=== PATIENT | female | born 1950 | race Caucasian/White ===

== ENCOUNTER 2016-07-17 18:16 | Emergency (ER) | payer OTHER ==
[~2016-07-17] VITALS: Ht 157.5 cm; Wt 47.7 kg
[~2016-07-17 18:16] MED LIST: ALBU8.5H2 INHALATION; ATRINH INH; B-COMPLEX PO; C COMPLEX PO; CALC500T61 PO; DOXY100C2 PO; ESTR1PAT39 TD; FLUT16SP2 NS; IMITREX; LORA0.5T PO; MAGN250T29 PO; MULT-36 PO; OMEG1CAP25 PO; VITA400C64 PO; VITAMIN D PO
[2016-07-17 18:19] VITALS: BP 184/111; PULSE 89; RESP 18; O2SAT 98
--- NOTE | 2016-07-17 18:42 | ED.REPORT ---
HPI-Chest Pain 40 and Over Date of Service Jul 17, 2016 ED Provider: Dr. Lovett Pt is a 66 y/o female w/ a hx of PACs, anxiety, presenting to the ED c/o irregular palpitations onset 1700 today. She describes her palpitations as her heart skipping a beat which causes her very mild shortness of breath. She has experienced similar palpitations previously which were diagnosed as PACs but not to this frequency. She has been evaluated for this previously and was told her palpitations were benign. Usually when prolonged episodes occur, they are preceded by triggers related to stress. She has not had an echo before. She denies CP, SOB, lightheadedness, syncope, fever, chills. She denies caffeine use. Nursing Notes Stated Complaint: HEART SKIPPING Chief Complaint: Dysrhythmia/Cardiac Nursing Notes Reviewed: Yes Allergies: Coded Allergies: erythromycin ethylsuccinate (Verified Allergy, Severe, RASH, 07/17/16) metoclopramide (Verified Allergy, Severe, INCR HR, 07/17/16) morphine (Verified Allergy, Severe, 04/13/09) fluoxetine (Verified Allergy, Intermediate, increased HR, 07/17/16) nortriptyline (Verified Allergy, Unknown, 07/17/16) insomnia, rapid HR Scheduled ([B-Complex]) 1 TAB PO DAILY ([C-Complex]) 1 TAB PO DAILY ([Vitamin D]) 1,500 IU PO DAILY ([Imitrex]) PRN Albuterol HFA (Proair HFA) 8.5 Gm Hfa.aer.ad 2 PUFFS INHALATION Q4H Calcium Carbonate (Calcium) 500 Mg Tablet 1,500 MG PO DAILY Doxycycline Hyclate (Doxycycline Hyclate) 100 Mg Capsule 100 MG PO BID Estradiol/Levonorgestrel (Climara Pro Patch) 1 Each Patch.tdwk 1 EACH TD WEEKLY Fluticasone Propionate (Flonase Nasal) 16 Gm Mackey.susp 1 SPRAY NS PRN Ipratropium Lewis (Atrovent HFA) 200 Puff/12.9 Gm Inhaler 2 PUFF INH PRN Magnesium Oxide (Magnesium) 250 Mg Tablet 250 MG PO DAILY Multivitamin (Daily Multiple Vitamin) 1 Each Tablet 1 EACH PO TID [place]-3 Fatty Acids/Fish Oil ([place] 3 Fish Oil Softgel) 1 Each Capsule.dr 1 EACH PO DAILY Vitamin E Mixed (Vitamin E) 400 Unit Capsule 400 UNIT PO DAILY Scheduled PRN Lorazepam (Lorazepam) 0.5 Mg Tablet 0.5 MG PO PRN PRN PRN For Insomnia General Time Seen by MD: 18:41 Chief Complaint Other (Palpitations) Hx Obtained From: Patient Arrived By: Walk-in Sudden in Onset?: No Onset Occurred: 1 - 4 hours ago Symptom Duration: Since onset Severity: Current: No pain currently Severity: Maximum: No pain Recent Healthcare: Previous diagnosis Similar Sx Previous: Yes Past Medical History Past Medical History Asthma PACs Anxiety 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 Physical Exam Initial Vital Signs Vital Signs (First) Date Time Temp Pulse Resp B/P Pulse Ox O2 Delivery O2 Flow Rate FiO2 07/17/16 18:19 36.2 89 18 184/111 98 Room Air Initial VS: Reviewed, Vital signs abnormal Head / Eyes: Atraumatic, Normocephalic, PERRL ENT: Mucous membranes moist, Conjunctiva normal, No scleral icterus Neck: Supple, Full range of motion Extremities: Vascular intact, Neuro intact, No swelling, No tenderness Skin: Warm, Dry, No cyanosis Neurologic: Alert, Oriented, Nonfocal Psychiatric: Mood/affect normal, Behavior normal, Normal thought content General/Constitutional: Awake, Alert, No acute distress, Cooperative, Not toxic appearing Respiratory / Chest: Atraumatic, Breath sounds NL, Breath sounds = bilat, No respiratory distress, No rales, No rhonchi, No wheezing, No retractions, No stridor, No chest tenderness, No chest wall deformity, No crepitus Cardiovascular: Heart rate NL, Regular rhythm, Heart sounds NL, No gallop, No murmurs, No rubs, Cap refill not delayed, Peripheral circulation NL Interpretation & Diagnostics Lab Results Interpretation Result Diagram: 07/17/16 1850 07/17/16 185 Test 07/17/16 18:50 07/17/16 19:10 White Blood Count 6.4th/mm3 (3.8-10.1) Red Blood Count 4.97mil/mm3 (3.90-5.20) Hemoglobin 15.3g/dL (12.0-15.6) Hematocrit 45.3% (35.0-46.0) Mean Corpuscular Volume 91.1fL (81-100) Mean Corpuscular Hemoglobin 30.8pg (27.0-35.0) Mean Corpuscular Hemoglobin Concent 33.8% (32.0-37.0) Red Cell Distribution Width 13.1% (12.3-15.4) Platelet Count 267bil/L (150-400) Neutrophils (%) (Auto) 49.6% (40-74) Lymphocytes (%) (Auto) 37.2% (14-46) Monocytes (%) (Auto) 11.6% (4-12) Eosinophils (%) (Auto) 0.9% (0-5) Basophils (%) (Auto) 0.5% (0-3) Hold Purple Top Tube Received (Received) Hold Blue Top Tube Received (Received) Sodium Level 137mEq/L (134-144) Potassium Level 4.2mEq/L (3.5-5.2) Chloride Level 96mEq/L (97-108) Carbon Dioxide Level 25mmol/L (18-29) Blood Urea Nitrogen 17mg/dL (8-27) Creatinine 0.78mg/dL (0.57-1.00) Estimat Glomerular Filtration Rate 106mL/min (>59) Glucose Level 94mg/dL (60-99) Calcium Level 10.4mg/dL (8.5-10.1) Total Bilirubin 0.5mg/dL (0.0-1.2) Aspartate Amino Transf (AST/SGOT) 26U/L (0-50) Alanine Aminotransferase (ALT/SGPT) 21U/L (0-32) Alkaline Phosphatase 53U/L (25-165) Troponin T < 0.010ug/L (0.0-0.011) Total Protein 7.8g/dL (6.4-8.4) Albumin 4.2g/dL (3.4-5.0) Hold [place] Top Tube Received (Received) Hold Cr Top Tube Received (Received) Hold Urine Received (Received) ECG Interpretation ECG Interpretation: Sinus rhythm rate 93 APC LAE Time: 18:56 Interpreted by: ED physician Normal ECG Interpretation: No acute ischemic changes Re-Eval/Medical Decision Time of Eval: 20:07 Patient Status: Condition improved Re-Evaluation/Progress Note: Pt rechecked. Informed pt of plan for treatment. Pt understands and agrees with plan for treatment. F/U instructions and RTER warnings given. All questions addressed. Counseled Regarding: Diagnosis, Lab results, Need for follow-up, When/why to return to ED Discharge & Departure Primary Impression: Premature atrial contraction Disposition: Home Discharge Condition All VS Reviewed: Yes Condition: Stable Patient Instructions: Palpitations (ED) Additional Instructions: Your labs today were normal. There is no sign of heart attack. Your EKG showed premature atrial contractions (PACs), which is a benign condition that is quite common although most people are not able to perceive these early beats. If these palpitations continue to cause you discomfort or other complications, medical management may be considered. This should be discussed with your doctor. Try to refrain from caffeine for the next few days to see if this causes a decrease in your palpitations. Return to the emergency department if you experience chest pain, severe shortness of breath, lightheadedness, vomiting, or other concerning symptoms. Follow-up with your doctor as regularly scheduled. Referrals: Reinier Aguilar MD (PCP) Scribe Attestation Portions of this note were transcribed by Lawrence Lincoln. I, Dr. Lovett personally performed the history, physical exam and medical decision-making; I reviewed and confirmed the accuracy of the information in the transcribed note. Signed by Heriberto Aguayo, 07/17/161999 copies to: Reinier Aguilar MD, Kirk H MD Jul 17, 2016 18:42 LAWRENCE LICNOLN Jul 17, 2016 18:53
[2016-07-17 18:44] VITALS: BP 180/85; PULSE 93; RESP 21; O2SAT 99
[2016-07-17 19:33] LABS: BASOPHILS % (AUTO) 0.5 % (0-3); EOSINOPHILS % (AUTO) 0.9 % (0-5); MONOCYTES % (AUTO) 11.6 % (4-12); Mean Corpuscular Hemoglobin 30.8 pg (27.0-35.0); Mean Corpuscular Volume 91.1 fL (81-100); NEUTROPHILS % (AUTO) 49.6 % (40-74); Platelet Count 267 bil/L (150-400)
[2016-07-17 19:51] LABS: TROPONIN T < 0.010 ug/L (0.0-0.011)
[2016-07-17 20:54] VITALS: BP 151/82; PULSE 77; RESP 19; O2SAT 95
== END 2016-07-17 20:55 | disposition home or self-care (01) ==
LOC: SED 18:16
DX: I49.1 Atrial premature depolarization (principal); J45.909 Unspecified asthma, uncomplicated; Z87.891 Personal history of nicotine dependence; Z88.1 Allergy status to other antibiotic agents; Z88.5 Allergy status to narcotic agent; Z88.8 Allergy status to other drugs, medicaments and biological substances